=== PATIENT | female | born 1960 | race Caucasian/White ===

== ENCOUNTER 2019-02-17 14:33 | Outpatient (CLI) | payer BC ==
--- NOTE | 2019-03-06 08:54 | MMO ---
Bilateral MAMMO Bilat Screen DDI+LINDA. CLINICAL HISTORY: Patient is 58 years old and is seen for screening. VIEWS: The views performed were: bilateral craniocaudal with tomosynthesis and bilateral mediolateral oblique with tomosynthesis. FILMS COMPARED: The present examination has been compared to a prior imaging study performed at [facility] on 08/12/2017. This study has been interpreted with the assistance of computer-aided detection. MAMMOGRAM FINDINGS: There are scattered fibroglandular densities. There is a focal asymmetry seen in the CC view only seen in the inner region of the right breast. In the left breast, there are no suspicious masses, calcifications or areas of architectural distortion. IMPRESSION: FOCAL ASYMMETRY IN THE RIGHT BREAST REQUIRES ADDITIONAL EVALUATION. ADDITIONAL IMAGING. THE RESULTS OF THIS EXAM WERE SENT TO THE PATIENT. ACR BI-RADS Category 0 - Incomplete: Need additional imaging evaluation. [facility] will notify the patient of the need for additional imaging services. MAMMOGRAPHY NOTE: 1. A negative mammogram report should not delay a biopsy if a dominant of clinically suspicious mass is present. 2. Approximately 10% to 15% of breast cancers are not detected by mammography. 3. Adenosis and dense breasts may obscure an underlying neoplasm. Reported by: NGUYỄN ARTEAGA MD Electonically Signed: [id number]
== END 2019-02-17 14:34 | disposition home or self-care (01) ==
LOC: BICMAMMO 14:33
PROVIDERS: ATTEND Nurse Practitioner Family
DX: Z12.31 Encounter for screening mammogram for malignant neoplasm of breast (principal); N64.89 Other specified disorders of breast
CPT/HCPCS: 77063; 77067

== ENCOUNTER 2019-03-20 09:04 | Outpatient (CLI) | payer BC ==
--- NOTE | 2019-03-20 09:26 | MMO ---
Right Breast MAMMO Unilat Diag DDI RT+LINDA. CLINICAL HISTORY: Patient is 58 years old and is seen for additional evaluation requested at current screening. The patient has no family history of breast cancer. The patient has no personal history of cancer. VIEWS: The views performed were: right craniocaudal spot compression with tomosynthesis and right mediolateral with tomosynthesis. FILMS COMPARED: The present examination has been compared to prior imaging studies performed at [facility] on 02/17/2019, and at [facility] on 08/12/2017. This study has been interpreted with the assistance of computer-aided detection. MAMMOGRAM FINDINGS: There are scattered fibroglandular densities. There are no suspicious masses, suspicious calcifications, or new areas of architectural distortion. The asymmetry seen at screening mammography does not persist at additional imaging, compatible with superimposed tissue. IMPRESSION: THERE IS NO MAMMOGRAPHIC EVIDENCE OF MALIGNANCY. A ROUTINE FOLLOW-UP MAMMOGRAM IN 1 YEAR IS RECOMMENDED. THE RESULTS OF THIS EXAM WERE SENT TO THE PATIENT. ACR BI-RADS Category 1 - Negative MAMMOGRAPHY NOTE: 1. A negative mammogram report should not delay a biopsy if a dominant of clinically suspicious mass is present. 2. Approximately 10% to 15% of breast cancers are not detected by mammography. 3. Adenosis and dense breasts may obscure an underlying neoplasm. Reported by: EDILBERTO CARROLL MD Electonically Signed: [id number]
== END 2019-03-20 09:05 | disposition home or self-care (01) ==
LOC: BICMAMMO 09:04
PROVIDERS: ATTEND Nurse Practitioner Family
DX: R92.2 Inconclusive mammogram (principal)
CPT/HCPCS: G0279

== ENCOUNTER 2019-07-28 08:28 | Day surgery (SDC) | payer OTHER ==
[2019-07-26 15:28] VITALS: BMI 45.9
[2019-07-28] MEDS ORDERED: PROPOFOL 20 ML ONE (09:24)
[2019-07-28] MEDS ORDERED: Fentanyl 100 MCG/2 ML VIAL ONE ×2 (11:17→11:57)
[2019-07-28] MEDS ORDERED: Lidocaine 1% PF 5 ML VIAL ONE (15:22)
[2019-07-28] MEDS ORDERED: Lidocaine 2% w/Epinephrine 1:200K 20 ML VIAL ONE (15:22)
[2019-07-28] MEDS ORDERED: Bupivacaine PF 0.5% 30 ML VIAL ONE (15:22)
[2019-07-28] MEDS ORDERED: Ondansetron PF 4 MG/2 ML Vial ONE (15:22)
[2019-07-28] MEDS ORDERED: PROPOFOL 200 MG/20 ML VIAL ONE (15:22)
--- NOTE | 2019-07-28 19:52 | OP ---
DATE OF PROCEDURE: 07/28/2019 PREOPERATIVE DIAGNOSIS: Left knee posterior horn medial meniscus tear. POSTOPERATIVE DIAGNOSIS: Left knee posterior horn medial meniscus tear. PROCEDURE PERFORMED: Left knee arthroscopy with partial medial meniscectomy. SIGHT MOUNTER: None. ESTIMATED BLOOD LOSS: Minimal. COMPLICATIONS: None. ANESTHESIA: The patient did have a general anesthetic as well as a local knee block. DISPOSITION: She went to recovery room in stable condition. INDICATIONS: A 59-year-old female comes in complaining of pain, catching, and swelling of the knee. MRI confirmed a medial meniscus tear. At this time, she opted to have surgery. DESCRIPTION OF PROCEDURE: After all appropriate consent forms were explained and signed, she was taken to the operative room. At this time, she was given general anesthetic. Once the level of anesthesia was appropriate, a tourniquet was placed on the left thigh, and the leg was then placed in arthroscopic leg francois. The limb was then prepped and draped in standard surgical fashion. The limb was then exsanguinated, and tourniquet was taken up to 300 mmHg. Inferolateral portal was established. Scope was placed into the knee joint. A needle localization technique was then used to make a medial working portal. Diagnostic arthroscopy commenced in the notch. ACL and PCL were probed, found to be intact. The medial compartment showed a little bit wear on the femur. The tibial plateau was in great condition. There was a tear in the posterior horn of the medial meniscus. There also was a flap component as the posterior horn turned into the body, which had gone in the meniscotibial recess, and at this time, biter and shaver were used to perform a partial meniscectomy back to a stable base. Once this area was cleaned out, we turned our attention laterally, and for the most part, the lateral compartment was in good condition. The patellofemoral joint was also found to be in excellent condition other than the superior medial facet of the patella, which had significant wear. The gutters were swept through, no loose bodies were noted. We did notice some early osteophytes growing, especially on the medial femoral condyle. At this time, scope was removed. Knee was drained. Portals were closed with simple nylon stitch. Bulky sterile dressing was then applied. Tourniquet was let down. Toes pinked up nicely. The patient was awakened to recovery room in stable condition. All counts were correct at the end of the case, and she did receive preoperative IV antibiotics. Job ID: [id number]
== END 2019-07-28 14:05 | disposition home or self-care (01) ==
LOC: SDC 08:28
PROVIDERS: ATTEND Orthopaedic Surgery
PROC: 0SBD4ZZ Excision of Left Knee Joint, Percutaneous Endoscopic Approach (ICD-10-PCS; principal; 2019-07-28)
DX: S83.242A Other tear of medial meniscus, current injury, left knee, initial encounter (principal); I10 Essential (primary) hypertension; E78.5 Hyperlipidemia, unspecified; M19.90 Unspecified osteoarthritis, unspecified site; E66.01 Morbid (severe) obesity due to excess calories; Z68.42 Body mass index [BMI] 45.0-49.9, adult; Z79.1 Long term (current) use of non-steroidal anti-inflammatories (NSAID); Z79.899 Other long term (current) drug therapy; X58.XXXA Exposure to other specified factors, initial encounter
CPT/HCPCS: J0690; J2001; J2405; J2704; J3010; S0020